=== PATIENT | male | born 1995 | race Caucasian/White ===

== ENCOUNTER 2020-07-17 13:54 | Outpatient (REF) | payer BC, SELFPAY ==
[2020-07-20 16:05] LABS: COVID-19 RT-PCR UVMMC Result Negative (Negative)
== END 2020-07-17 14:14 ==
LOC: NCHCN 13:54
PROVIDERS: PCP Nurse Practitioner Family; Visit Provider Nurse Practitioner Family
DX: Z11.59 Encounter for screening for other viral diseases (principal)
CPT/HCPCS: U0003